=== PATIENT | male | born 1945 | race Caucasian/White ===

== ENCOUNTER 2020-03-29 11:39 | Emergency (ER) | payer OTHER, MEDICARE ==
[2020-03-29 11:55] VITALS: TEMP 98; BMI 27.3
[2020-03-29] MEDS ORDERED: ASPIRIN 81 MG CHEWABLE TABLETS PO ONE (12:36)
--- NOTE | 2020-03-29 12:38 | PDOC ---
History of Present Illness - General Chief Complaint: Abnormal Lab Results (Outside) Stated Complaint: SENT BY PCP ([facility]) Time Seen by Provider: 03/29/20 12:16 History Source: Patient Exam Limitations: No Limitations - History of Present Illness Initial Comments: 03/29/20 12:42 74-year-old male with cardiac history including hypertension stent placement and dyslipidemia presents to ED with intermittent left-sided chest stabbing sensation since yesterday associated with "dizziness and wooziness. Patient went to an urgent care clinic who then referred him to the ER secondary to elevated blood pressure despite a normal EKG. Patient's primary care physician Dr. Mike Blancas recommended cardiac work-up and amlodipine 5 mg p.o. if BP is elevated. Patient denies any recent illness recent travel, change in diet, change in weight, or change in lifestyle. Presenting Symptoms: Chest Pain Timing/Duration: reports: intermittent Severity/Quality: reports: moderate, stabbing Location: reports: substernal Chest Pain Radiation: reports: no radiation Activities at Onset: reports: none Prior Chest Pain/Cardiac Workup: reports: Other Nitro Today/Relief: Yes: no nitro taken today Aspirin Received prior to arrival (Core Measure): Yes: 81 mg x 2, provided by ED Beta Val given by EMS (Core Measure): No Beta Val taken at Home (Core Measure): No Associated Symptoms: Yes: Chest Pain/pressure Past History - Travel History Traveled outside of the country in the last 30 days: No Close contact w/someone who was outside of country & ill: No - Medical History Allergies/Adverse Reactions: Allergies Allergy/AdvReac Type Severity Reaction Status Date / Time No Known Allergies Allergy Verified 03/29/20 11:45 Home Medications: Ambulatory Orders Alfuzosin HCl [Uroxatral] 10 mg PO DAILY 03/23/13 Aspirin 81 mg PO DAILY 03/23/13 Atorvastatin Calcium [Lipitor] 40 mg PO HS 03/23/13 Clopidogrel Bisulfate [Plavix] 75 mg PO DAILY 03/23/13 Colesevelam HCl [Welchol] 650 mg PO BID 03/23/13 propRANOLol HCL [Inderal] 10 mg PO HS 03/23/13 Cardiac Disorders: Yes COPD: No Hypercholesterolemia: Yes - Surgical History Appendectomy: Yes (2003) Cardiac Surgery: Yes (sents x 2 2003) - Psycho-Social/Smoking History Patient Lives Alone: No Lives with/in: spouse/SO Smoking Status: No Smoking History: Never smoked Number of Cigarettes Smoked Daily: 0 - Substance Abuse Hx (Audit-C & DAST Scrn) How often the patient has a drink containing alcohol: Never Score: In Men: 4 or > Positive; In Women: 3 or > Positive: 0 Screen Result (Pos requires Nsg. Audit-10AR): Negative Review of Systems - Review of Systems Able to Perform ROS?: No Is the patient limited [place] proficient: No Constitutional: No: Symptoms Reported HEENTM: No: Symptoms Reported Respiratory: No: Symptoms reported Cardiac (ROS): Yes: Chest Pain, Lightheadedness ABD/GI: No: Symptoms Reported : No: Symptoms Reported Musculoskeletal: No: Symptoms Reported Integumentary: No: Symptoms Reported Neurological: Yes: Dizziness Endocrine: No: Symptoms Reported Hematologic/Lymphatic: No: Symptoms Reported *Physical Exam - Vital Signs Last Vital Signs Temp Pulse Resp BP Pulse Ox 98 F 66 18 153/82 99 03/29/20 11:41 03/29/20 16:46 03/29/20 16:46 03/29/20 16:46 03/29/20 16:46 - Physical Exam General Appearance: Yes: Nourished, Appropriately Dressed. No: Apparent Distress HEENT: negative: Pale Conjunctivae Neck: positive: Supple Respiratory/Chest: positive: Lungs Clear, Normal Breath Sounds. negative: Respiratory Distress, Accessory Muscle Use Cardiovascular: positive: Regular Rhythm, Regular Rate. negative: Murmur Vascular Pulses: Dorsalis-Pedis (R): 2+, Doralis-Pedis (L): 2+ Gastrointestinal/Abdominal: positive: Soft. negative: Tenderness Extremity: positive: Normal Inspection. negative: Pedal Edema Integumentary: positive: Normal Color, Warm, Moist Neurologic: positive: Motor Strength 5/5 (ambulatory) Heart Score/ECG Review - ECG Intrepretation Rhythm: Regular Rhythm (rate 60, nsr, no st elevation or depression) ED Treatment Course - LABORATORY CBC & Chemistry Diagram: 03/29/20 12:44 03/29/20 12:44 - ADDITIONAL ORDERS Additional order review: Laboratory Results 03/29/20 03/29/20 03/29/20 15:45 12:44 12:44 PT with INR INR PTT (Actin FS) D-Dimer Sodium 142 Potassium 3.6 Chloride 101 Carbon Dioxide 35 H Anion Gap 7 L BUN 15.4 Creatinine 1.6 H Est GFR (CKD-EPI)AfAm 47.79 Est GFR (CKD-EPI)NonAf 41.23 Random Glucose 102 Calcium 9.1 Magnesium 2.3 Total Bilirubin 0.5 AST 22 ALT 25 Alkaline Phosphatase 82 Creatine Kinase 171 196 Creatine Kinase Index 4.1 CK-MB (CK-2) 8.1 H Troponin I < 0.02 < 0.02 B-Natriuretic Peptide 104.0 Total Protein 7.5 Albumin 4.3 03/29/20 03/29/20 12:44 12:44 PT with INR 12.10 INR 1.03 PTT (Actin FS) 32.1 D-Dimer < 215 Sodium Potassium Chloride Carbon Dioxide Anion Gap BUN Creatinine Est GFR (CKD-EPI)AfAm Est GFR (CKD-EPI)NonAf Random Glucose Calcium Magnesium Total Bilirubin AST ALT Alkaline Phosphatase Creatine Kinase Creatine Kinase Index CK-MB (CK-2) Troponin I B-Natriuretic Peptide Total Protein Albumin 03/29/20 12:44 RBC 5.33 MCV 86.2 MCHC 32.6 RDW 13.8 MPV 9.1 Neutrophils % 69.0 Lymphocytes % 17.2 Monocytes % 11.1 H Eosinophils % 2.4 Basophils % 0.3 - RADIOLOGY Radiology Studies Ordered: Category Date Time Status HEAD CT WITHOUT CONTRAST [CT] Stat CT Scan 03/29/20 13:50 Completed CHEST PA & LAT [RAD] Stat Radiology 03/29/20 12:24 Completed - Medications Given in the ED: ED Medications Discontinued Medications Generic Name Dose Route Start Last Admin Trade Name Freq PRN Reason Stop Dose Admin Amlodipine Besylate 5 mg 03/29/20 12:41 03/29/20 12:43 Norvasc - PO 03/29/20 12:42 5 mg ONCE ONE Administration Aspirin 162 mg 03/29/20 12:36 03/29/20 12:43 Asa - PO 03/29/20 12:37 162 mg ONCE ONE Administration Medical Decision Making - Medical Decision Making 03/29/20 12:40 Complaint: Intermittent chest stabbing sensation for the past 2 days and dizziness for the past 2 days without visual changes, headache, nausea chest pain or palpitations. Patient with cardiac history including stents and also takes medication daily for hypertension and dyslipidemia which he took today Exam: Blood pressure elevated otherwise normal physical exam including EKG. Plan: ROBERT work-up including head CT. Patient also ordered for amlodipine p.o. 03/29/20 17:18 Laboratory Tests 03/29/20 03/29/20 03/29/20 12:44 12:44 12:44 WBC 5.9 Hgb 15.0 Hct 46.0 Plt Count 191 D Absolute Neuts (auto) 4.1 Monocytes % 11.1 H PT with INR 12.10 INR 1.03 PTT (Actin FS) 32.1 D-Dimer < 215 Sodium Potassium Chloride Carbon Dioxide Anion Gap BUN Creatinine Calcium Magnesium Total Bilirubin AST ALT Alkaline Phosphatase Creatine Kinase Troponin I B-Natriuretic Peptide Albumin 03/29/20 03/29/20 03/29/20 12:44 12:44 15:45 WBC Hgb Hct Plt Count Absolute Neuts (auto) Monocytes % PT with INR INR PTT (Actin FS) D-Dimer Sodium 142 Potassium 3.6 Chloride 101 Carbon Dioxide 35 H Anion Gap 7 L BUN 15.4 Creatinine 1.6 H Calcium 9.1 Magnesium 2.3 Total Bilirubin 0.5 AST 22 ALT 25 Alkaline Phosphatase 82 Creatine Kinase 196 171 Troponin I < 0.02 < 0.02 B-Natriuretic Peptide 104.0 Albumin [address] negative for acute pathology. Patient remains asymptomatic since arrival. Patient did receive 2 baby aspirin and blood pressure improved to 145/90 after receiving amlodipine 5 mg. Case also discussed with patient's primary care physician Dr. Blancas who understands I am recommending admission. Patient is requesting to go home and Dr. Blancas feels comfortable with this discharge. 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 I have discussed this case with your primary care physician. I recommend taking amlodipine 5 mg until you see your primary care physician in lieu of your other medication you may take your propranolol when you go home today and then continu e regular dose starting tomorrow. - Post Discharge Activity
[2020-03-29] MEDS ORDERED: amLODIPine BESYLATE 5 MG TABLET (FP) PO ONE (12:41)
[2020-03-29] MEDS ORDERED: amLODIPine BESYLATE 5 MG TABLET (FP) ONE (12:49)
[2020-03-29] MEDS ORDERED: ASPIRIN 81 MG CHEWABLE TABLETS ONE (12:49)
[2020-03-29 13:19] LABS: BASO % 0.3 % (0-2.0); EOS % 2.4 % (0-4.5); LYMPH % 17.2 % (8-40); MCH 28.2 pg (25.7-33.7); MCHC 32.6 g/dl (32.0-35.9); MEAN CELL VOLUME 86.2 fl (80-96); MEAN PLT VOLUME 9.1 fl (7.5-11.1); MONO % 11.1 % (3.8-10.2); PLATELET COUNT 191 K/MM3 (134-434); RBC 5.33 M/mm3 (4.00-5.60); RDW 13.8 % (11.9-15.9); WHITE BLOOD COUNT 5.9 K/mm3 (4.0-10.0)
[2020-03-29 13:24] LABS: INR 1.03 (0.83-1.09); PROTHROMBIN TIME (PATIENT) 12.1 SEC (9.7-13.0)
[2020-03-29 13:26] LABS: ACTIVATED PTT 32.1 SECONDS (25.2-36.5)
[2020-03-29 13:49] LABS: ALBUMIN 4.3 g/dl (3.4-5.0); ALK PHOS 82 U/L (45-117); ANION GAP 7 MMOL/L (8-16); BILIRUBIN,TOTAL 0.5 mg/dL (0.2-1); BLOOD UREA NITROGEN 15.4 mg/dL (7-18); CALCIUM 9.1 mg/dL (8.5-10.1); CHLORIDE 101 mmol/L (98-107); CO2 35 mmol/L (21-32); CREATININE 1.6 mg/dL (0.55-1.3); GLUCOSE,RANDOM 102 mg/dL (74-106); MAGNESIUM 2.3 mg/dL (1.8-2.4); POTASSIUM 3.6 mmol/L (3.5-5.1); SGOT/AST 22 U/L (15-37); SGPT/ALT 25 U/L (13-61); SODIUM 142 mmol/L (136-145); TOT PROT 7.5 g/dl (6.4-8.2)
[2020-03-29 16:47] VITALS: BP 153/82; PULSE 66
--- NOTE | 2020-03-29 17:48 | EKG ---
Test Reason : Blood Pressure : / mmHG Vent. Rate : 060 BPM Atrial Rate : 060 BPM P-R Int : 188 ms QRS Dur : 108 ms QT Int : 390 ms P-R-T Axes : 045 031 030 degrees QTc Int : 390 ms NORMAL SINUS RHYTHM NORMAL ECG WHEN COMPARED WITH ECG OF 23-MAR-2013 19:21, CRITERIA FOR INFERIOR INFARCT ARE NO LONGER PRESENT QT HAS SHORTENED Confirmed by MD CLARISSE, CORI ([id number]) on 03/29/2020 5:48:17 PM Referred By: Confirmed By:CORI ROBB MD
--- NOTE | 2020-03-30 09:17 | EKG ---
Test Reason : Blood Pressure : / mmHG Vent. Rate : 060 BPM Atrial Rate : 060 BPM P-R Int : 190 ms QRS Dur : 108 ms QT Int : 420 ms P-R-T Axes : 032 006 010 degrees QTc Int : 420 ms SINUS RHYTHM WITH OCCASIONAL PREMATURE VENTRICULAR COMPLEXES INFERIOR INFARCT , AGE UNDETERMINED ABNORMAL ECG WHEN COMPARED WITH ECG OF 29-MAR-2020 11:48, PREMATURE VENTRICULAR COMPLEXES ARE NOW PRESENT Confirmed by GIN KATZ MD ([id number]) on 03/30/2020 9:17:36 AM Referred By: Confirmed By:GIN KATZ MD
== END 2020-03-29 18:00 | disposition left against medical advice (07) ==
LOC: JER 11:39
DX: R07.9 Chest pain, unspecified (principal); I10 Essential (primary) hypertension
CPT/HCPCS: 36415; 70450-TC; 71046-TC-FY; 80053; 82550; 82553; 83735; 83880; 84484; 85025; 85379; 85610; 85730; 93005; 93010; 99285-25